=== PATIENT | male | born 1945 | race Hispanic/Latino ===

== ENCOUNTER 2016-05-11 11:35 | Emergency (ER) | payer MEDICARE, BC ==
[2016-05-11 11:36] VITALS: BMI 24.5
[2016-05-11 11:51] VITALS: RESP 18; TEMP 98.6
--- NOTE | 2016-05-11 11:59 | ED PDOC ---
Arrival/HPI - General Time Seen by Provider: 05/11/16 11:36 Historian: Patient - History of Present Illness Narrative History of Present Illness (Text): 05/11/16 11:54 70 year old male with a past medical history that includes anxiety and depression presents to the emergency department s/p syncopal episode prior to arrival. Patient states he was going to do routine exercise when he dropped something and bent down to pick it up but when he stood back up he hit his head on an open cabinet, resulting in a laceration on his head. He states he went to an urgent care like facility to get it checked. While being evaluated he states he began to feel lightheaded and then passed out. He says he was told he lost consciousness for about 20 seconds before returning to baseline status. Currently patient reports slight headache. Denies shortness of breath, chest pain, or other symptoms. PMD: Dr. Estrada Time/Duration: Prior to Arrival Symptom Onset: Sudden Symptom Course: Resolved Modifying Factors (Text): None Associated Symptoms (Text): None Past Medical History - Provider Review Nursing Documentation Reviewed: Yes - Infectious Disease Hx of Infectious Diseases: None - Tetanus Immunization Tetanus Immunization: Unknown - Past Medical History Past Medical History: No Previous - Cardiac Hx Cardiac Arrhythmia: Yes (A-fib) - Pulmonary Hx Respiratory Disorders: No Hx Asthma: No Hx Bronchitis: No Hx Chronic Obstructive Pulmonary Disease (COPD): No Hx Emphysema: No - Neurological Hx Neurological Disorder: No Hx Alzheimer's Disease: No HX Cerebrovascular Accident: No Hx Dementia: No Hx Migraine: No Hx Parkinson's Disease: No Hx Seizures: No Hx Transient Ischemic Attacks (TIA): No - HEENT Hx Cataracts: Yes (left) - Renal Hx Renal Disorder: No - Endocrine/Metabolic Hx Endocrine Disorders: No - Hematological/Oncological Hx Blood Disorders: No - Integumentary Hx Squamous Cell Carcinoma: Yes (nose) - Musculoskeletal/Rheumatological Hx Arthritis: Yes (neck) Hx Falls: Yes - Gastrointestinal Hx Gastrointestinal Disorders: No - Genitourinary/Gynecological Hx Genitourinary Disorders: No - Psychiatric Hx Psychophysiologic Disorder: Yes Hx Anxiety: Yes Hx Depression: Yes Hx Panic Disorder: Yes Hx Substance Use: No - Past Surgical History Past Surgical History: No Previous - Surgical History Other/Comment: tonsillectomy as a child. exploratory lap 07/26 - Anesthesia Hx Anesthesia Reactions: No Hx Malignant Hyperthermia: No - Suicidal Assessment Feels Threatened In Home Enviroment: No Family/Social History - Physician Review Nursing Documentation Reviewed: Yes Family/Social History: Unknown Family HX Smoking Status: Never Smoked Hx Alcohol Use: No Hx Substance Use: No Allergies/Home Meds Allergies/Adverse Reactions: Allergies Benzodiazepines Allergy (Verified 05/11/16 12:03) ANAPHYLAXIS Home Medications: Home Meds Medication Instructions Recorded Confirmed Amitriptyline HCl [Amitriptyline 100 mg PO DAILY 08/24/12 08/24/12 HCl] Fluvoxamine Maleate 50 mg PO DAILY 08/24/12 08/24/12 Gabapentin 100 mg PO DAILY 08/24/12 08/24/12 Hydroxyzine Pamoate 50 mg PO BID PRN 08/24/12 08/24/12 Review of Systems - Physician Review All systems were reviewed & negative as marked: Yes - Review of Systems Respiratory: absent: SOB Cardiovascular: Syncope (resolved). absent: Chest Pain Neurological: Headache Physical Exam - Physical Exam Narrative Physical Exam (Text): Constitutional: No acute distress. Head: Normocephalic. 1 cm right posterior scalp laceration with no active bleeding and nonseparable edges. Eyes: PERRL. ENT: Moist mucous membranes. Neck: Supple. No midline tenderness. Cardiovascular: Regular rate. Chest: No tenderness. Respiratory: Clear to auscultation bilaterally. GI: Soft. Nontender. Nondistended. Back: No CVA tenderness. No midline tenderness. Musculoskeletal: No tenderness or swelling of extremities. Skin: No rash. Neurologic: Alert, no focal deficit. Vital Signs Reviewed: Yes Vital Signs Temp Pulse Resp BP Pulse Ox 05/11/16 13:34 69 18 152/75 H 99 05/11/16 11:51 98.6 F 65 18 159/82 H 98 Temperature: Afebrile Blood Pressure: Normal Pulse: Regular Respiratory Rate: Normal Appearance: Positive for: Well-Appearing, Non-Toxic, Comfortable Pain Distress: None Mental Status: Positive for: Alert and Oriented X 3 Finger Stick Blood Glucose: 96 Medical Decision Making ED Course and Treatment: Impression: 70 year old male presents to the emergency department s/p syncopal episode prior to arrival. Differential Diagnosis included but are not limited to: Vasovagal syncope Plan: -- CT Head, EKG, Chest X-ray -- Labs -- Reassess and disposition Prior Visits: Notes and results from previous visits were reviewed. Patient last seen in the ED on Progress Notes: EKG shows NSR at 65 BPM with RSR pattern, normal intervals, no ST elevations or depressions, no t-wave inversions, no change from previous EKG, interpreted by me. PROCEDURE: CT HEAD WITHOUT CONTRAST Professor Of Public Administration : Elaine Tatum V. IMPRESSION: No mass effect, edema or hemorrhage. Mild cerebral atrophy changes and probable small chronic microvascular angiopathy changes. Labs unremarkable. No dyspnea. No change in EKG and sinus rhythm. normal blood pressure. Dr. Estrada states patient can follow up with her on Monday. I instructed him to follow up without fail. - Lab Interpretations Lab Results: 05/11/16 12:20 05/11/16 12:20 Lab Results 05/11/16 12:20: WBC 5.9, RBC 4.41, Hgb 15.4, Hct 43.3, MCV 98.2, MCH 34.9, MCHC 35.6, RDW 13.3, Plt Count 176, MPV 9.6, Gran % 76.7 H, Lymph % (Auto) 14.3 L, Harrison % (Auto) 8.2 H, Eos % (Auto) 0.5 L, Baso % (Auto) 0.3, Gran # 4.51, Lymph # 0.8 L, Harrison # 0.5, Eos # 0.0, Baso # 0.02, Sodium 136, Potassium 4.6, Chloride 96 L, Carbon Dioxide 30, Anion Gap 15, BUN 27 H, Creatinine 1.3, Est GFR ( Amer) > 60, Est GFR (Non-Af Amer) 54, Random Glucose 120 H, Calcium 10.4, Total Bilirubin 1.0, AST 39, ALT 28, Alkaline Phosphatase 71, Total Creatine Kinase 355 H, CK-MB (CK-2) 5.4 H, CK-MB (CK-2) % 1.5 L, Troponin I 0.03, Total Protein 7.5, Albumin 4.4, Globulin 3.1, Albumin/Globulin Ratio 1.4 - RAD Interpretation Radiology Orders: 05/11/16 12:09 HEAD W/O CONTRAST [CT] Stat CHEST PORTABLE [RAD] Stat Bolt Labeler: Radiologist - EKG Interpretation Interpreted by ED Physician: Yes Type: 12 lead EKG - Scribe Statement The provider has reviewed the documentation as recorded by the Kavitha Diane Provider Scribe Attestation: All medical record entries made by the Mallorye were at my direction and personally dictated by me. I have reviewed the chart and agree that the record accurately reflects my personal performance of the history, physical exam, medical decision making, and the department course for this patient. I have also personally directed, reviewed, and agree with the discharge instructions and disposition. Disposition/Present on Arrival - Present on Arrival Any Indicators Present on Arrival: No History of DVT/PE: No History of Uncontrolled Diabetes: No Urinary Catheter: No History Surgical Site Infection Following: None - Disposition Have Diagnosis and Disposition been Completed?: Yes Diagnosis: Syncope Disposition: HOME/ ROUTINE Disposition Time: 14:35 Patient Plan: Discharge Condition: STABLE Discharge Instructions (ExitCare): Syncope (ED) Referrals: Queenie Estrada MD [Primary Care Provider] - Follow up with primary
[2016-05-11 12:26] LABS: ADD MANUAL DIFF? NO
[2016-05-11 12:32] LABS: BASO # 0.02 K/mm3 (0.0-2.0); BASO % 0.3 % (0.0-3.0); EOS % 0.5 % (1.5-5.0); GRAN # 4.51 (1.4-6.5); GRAN % 76.7 % (50.0-68.0); HEMATOCRIT 43.3 % (42.0-52.0); LYMPH # 0.8 (1.2-3.4); LYMPH % 14.3 % (22.0-35.0); MEAN CELL VOLUME 98.2 fL (80.0-105.0); MEAN CORPUSCULAR HEMOGLOBIN 34.9 pg (25.0-35.0); MEAN CORPUSCULAR HGB CONC 35.6 g/dl (31.0-37.0); MEAN PLATELET VOLUME 9.6 fl (7.0-11.0); MONO # 0.5 (0.1-0.6); MONO % 8.2 % (1.0-6.0); PLATELET COUNT 176 10^3/uL (120.0-450.0); RED CELL DISTRIBUTION WIDTH 13.3 % (11.5-14.5); WHITE BLOOD COUNT 5.9 10^3/ul (4.5-11.0)
[2016-05-11 12:38] LABS: ALB/GLOB RATIO 1.4 (1.1-1.8); ALKALINE PHOSPHATASE 71 U/L (38-133); ALT/SGPT 28 U/L (7-56); AST/SGOT 39 U/L (15-59); BLOOD UREA NITROGEN 27 mg/dL (7-21); CALCIUM 10.4 mg/dL (8.4-10.5); CARBON DIOXIDE 30 mmol/L (21-33); CHLORIDE 96 mmol/L (98-107); GFR AFRICAN-AMERICAN > 60; GLUCOSE,RANDOM 120 mg/dL (70-110); POTASSIUM 4.6 mmol/L (3.6-5.0); SODIUM 136 mmol/L (132-148); TOTAL PROTEIN 7.5 g/dL (5.8-8.3)
--- NOTE | 2016-05-11 12:48 | CT ---
PROCEDURE: CT HEAD WITHOUT CONTRAST. HISTORY: syncope COMPARISON: None available. TECHNIQUE: Axial computed tomography images were obtained through the head/brain without intravenous contrast. Radiation dose: Total exam DLP = mGy-cm. FINDINGS: HEMORRHAGE: No intracranial hemorrhage. BRAIN: No mass effect or edema. Mild cerebral atrophy or probable minimal chronic microvascular ischemic changes are present. There is minimal asymmetry/minimal hypodensity at the confluence of the posterior fossa CSF, left paracentral cerebellar folia and left occipital lobe sulci. This is probably due to partial volume averaging effects . If further evaluation is needed consider MRI of the brain VENTRICLES: Unremarkable. No hydrocephalus. CALVARIUM: Unremarkable. PARANASAL SINUSES: Unremarkable as visualized. No significant inflammatory changes. MASTOID AIR CELLS: Unremarkable as visualized. No inflammatory changes. OTHER FINDINGS: Rightward nasal septal spurring encroaching on the right nasal airway passages IMPRESSION: No mass effect, edema or hemorrhage. Mild cerebral atrophy changes and probable small chronic microvascular angiopathy changes.
[2016-05-11 12:49] LABS: TROPONIN I 0.03 ng/mL
[2016-05-11 13:34] VITALS: BP 152/75; PULSE 69; O2SAT 99
--- NOTE | 2016-05-11 13:38 | RAD ---
HISTORY: syncope COMPARISON: 08/31/2012 at 6:10 a.m. FINDINGS: LUNGS: No active pulmonary disease. PLEURA: No significant pleural effusion identified, no pneumothorax apparent. CARDIOVASCULAR: The current cardiac silhouette is within normal limits. There is less suggestion of cardiomegaly in contrast to the prior study OSSEOUS STRUCTURES: No significant abnormalities. VISUALIZED UPPER ABDOMEN: Normal. OTHER FINDINGS: None. IMPRESSION: No active disease.
--- NOTE | 2016-05-11 17:24 | CARD ---
APPROVED REPORT EKG Measurement Heart [id number] <Conclusion> Sinus rhythm with premature atrial complexes Left axis deviation Incomplete right bundle branch block Abnormal ECG
== END 2016-05-11 14:45 | disposition home or self-care (01) ==
LOC: ED 11:35
DX: R55 Syncope and collapse (principal); F41.9 Anxiety disorder, unspecified